=== PATIENT | male | born 1965 | race Caucasian/White ===

== ENCOUNTER → 2019-02-27 07:28 | Outpatient (CLI) | payer BC, SELFPAY ==
[2019-02-27 08:19] LABS: Add Manual Diff / Slide Review NO; Basophils Absolute Auto 100 /uL (0-100); Basophils Percent Auto 1.7 % (0-2); Eosinophils Absolute Auto 300 /uL (0-450); Hematocrit 43.6 % (41-53); Hemoglobin 15.2 g/dL (13.5-17.5); Lymphocytes Absolute Auto 1200 /uL (1100-4500); Mean Corpuscular HGB Conc 34.9 % (30-36); Mean Corpuscular Hemoglobin 29.3 PG (26-34); Monocytes Absolute Auto 400 /uL (0-900); Neutrophils Absolute Auto 2500 /uL (1500-7000); Neutrophils Percent Auto 56.3 % (50-75); Platelet Count 227 X10^3/uL (150-400); Red Blood Cell Count 5.19 X10^6/uL (4.5-5.9); Red Cell Distribution Width 13.9 % (11.6-14.8); White Blood Cell Count 4.5 X10^3/uL (4.5-11.0)
[2019-02-27 08:32] LABS: Alanine Aminotransferase 37 IU/L (<50); Albumin 4.4 g/dL (3.5-5.0); Albumin Globulin Ratio 1.7 (1.0-2.8); Alkaline Phosphatase 87 U/L (38-126); Aspartate Aminotransferase 35 IU/L (17-59); BUN Creatinine Ratio 18.9 (6-22); Bilirubin Total 1.1 mg/dL (0.2-1.3); Blood Urea Nitrogen 17 mg/dL (9-20); Calcium 9.6 mg/dL (8.4-10.2); Carbon Dioxide 28 mmol/L (22-32); Chloride 104 mmol/L (98-107); Cholesterol 223 mg/dL (140-199); Estimated Glomerular Filt Rate > 60.0 mL/min (>60); Globulin 2.6 g/dL (1.7-4.1); Glucose 101 mg/dL (70-100); HDL Cholesterol 29 mg/dL (40-60); HEMOLYSIS < 15 (0-50); LDL Cholesterol Calculated 155 mg/dL (<100); Potassium 4.2 mmol/L (3.4-5.1); Sodium 141 mmol/L (137-145); Triglycerides 195 mg/dL (35-150)
[2019-02-27 09:02] LABS: Prostate Specific Antigen Scrn 0.798 ng/mL (0.1-4.0)
[2019-02-27 09:03] LABS: Thyroid Stimulating Hormone 1.76 uIU/mL (0.47-4.68)
== END ==
PROVIDERS: PCP Family Medicine; Visit Provider Family Medicine
DX: E78.2 Mixed hyperlipidemia (principal)
CPT/HCPCS: 36415; 80053; 80061; 84443; 85025; G0103

== ENCOUNTER → 2020-01-12 15:56 | Outpatient (CLI) | payer OTHER, SELFPAY ==
--- NOTE | 2020-01-12 15:57 | DI.RAD.S_ITS ---
PROCEDURE: XR ANKLE LT MIN 3V INDICATIONS: swelling, injury TECHNIQUE: 3 views of the ankle were acquired. COMPARISON: None. FINDINGS: Bones: Fracture of the distal fibula/lateral malleolus, with nondisplaced appearance. Soft tissues: No tibiotalar joint effusion. Achilles tendon appears normal. IMPRESSION: Nondisplaced fracture of the distal fibula/lateral malleolus Dictated by: Diego Ozuna M.D. on 01/12/2020 at 16:15 Approved by: Diego Ozuna M.D. on 01/12/2020 at 16:24
--- NOTE | 2020-01-12 17:22 | DI.RAD.S_ITS ---
PROCEDURE: XR TIBIA FIBULA RT 2V INDICATIONS: ankle injury TECHNIQUE: 2 views of the tibia and fibula were acquired. COMPARISON: None. FINDINGS: Bones: No fractures or dislocations. No suspicious bony lesions. Soft tissues: No suspicious soft tissue calcifications or masses. IMPRESSION: No acute left lower leg fracture or dislocation. Dictated by: Akbar Ruiz M.D. on 01/12/2020 at 17:34 Approved by: Akbar Ruiz M.D. on 01/12/2020 at 17:39
== END ==
PROVIDERS: PCP Family Medicine; Referring Provider Family Medicine; Visit Provider Family Medicine
DX: S82.65XA Nondisplaced fracture of lateral malleolus of left fibula, initial encounter for closed fracture (principal); X58.XXXA Exposure to other specified factors, initial encounter
CPT/HCPCS: 73590; 73610

== ENCOUNTER → 2020-01-16 06:38 | Outpatient (CLI) | payer OTHER, SELFPAY ==
--- NOTE | 2020-01-16 06:39 | DI.MRI.S_ITS ---
PROCEDURE: MR ANKLE LT WO CON INDICATIONS: Fractured fibula distal TECHNIQUE: Noncontrast sagittal T1 spin echo and T2 fast spin echo with fat saturation, axial proton density fast spin echo and T2 fast spin echo with fat saturation, coronal T1 spin echo and T2 fast spin echo with fat saturation through the ankle/hindfoot. COMPARISON: [facility], [place], XR ANKLE LT MIN 3V, 01/12/2020, 15:46. FINDINGS: Image quality: Excellent. Bones and joints: There is soft tissue edema and swelling over medial aspect of distal lower leg extending to medial and posterior aspect of ankle joint. Mild edema involving lateral periphery of lateral malleolus is seen suggestive of bony contusion. No fracture or dislocation. Previous radiographic finding of linear lucency in distal fibular shaft likely represent nutrient vessel. Small amount of tibiotalar joint effusion is noted. No gross intra-articular loose body. No hindfoot coalitions. No osteochondral injuries of the talar dome. Medial structures: The posterior tibialis, flexor digitorum longus, and flexor hallucis longus tendons are intact. The posterior tibial neurovascular bundle appears normal within the tarsal tunnel, without extrinsic mass effect. The deep layer (anterior and posterior tibiotalar ligaments) and superficial layer (tibionavicular, tibiospring, and tibiocalcaneal ligaments) of the deltoid ligament appear normal. The spring ligament components (superomedial calcaneonavicular, medioplantar oblique calcaneonavicular, and inferoplantar longitudinal ligaments) are intact. Lateral structures: The anterior talofibular, calcaneofibular, and posterior talofibular ligaments appear intact. More superiorly, the anterior and posterior tibiofibular ligaments appear intact, as is the intermalleolar ligament. The tibiofibular syndesmosis is normal in width at 2 mm or less. The peroneus longus and brevis tendons are mildly thickened suggestive of low-grade tendinosis. Adjacent bony peroneal tubercle and retrotrochlear prominence are normal in size. The sinus tarsi demonstrates normal fatty signal, without edema, fibrosis, or cyst formation. Visualized sinus tarsi components (cervical ligament, interosseous talocalcaneal ligament, roots of the inferior extensor retinaculum) appear normal. The calcaneonavicular and calcaneocuboid components of the bifurcate ligament appear intact. The dorsal calcaneocuboid ligament appears intact. Anterior structures: The tibialis anterior, extensor hallucis longus, and extensor digitorum longus tendons appear intact. The dorsal talonavicular ligament appears intact. Posterior and plantar structures: Distal Achilles tendinosis and low-grade intrasubstance partial-thickness tear near its posterior calcaneal insertion is seen. No full-thickness rupture.. Medial and lateral bands of the plantar fascia are of normal thickness. No abductor digiti quinti muscle atrophy to suggest Moraes neuropathy. IMPRESSION: 1. Mild bony contusion involving lateral periphery of lateral malleolus. No evidence of acute fracture or dislocation is seen. Radiographic finding of linear lucency in distal fibular shaft likely represent a nutrient vessel. No other area of abnormal marrow signal. 2. Mild soft tissue edema and swelling along medial aspect of lower leg extending to medial and posterior aspect of ankle. 3. Suggestion of low-grade tendinosis involving peroneus tendons. Medial ankle tendons are intact. Distal Achilles tendinosis and low-grade partial-thickness tear at its posterior calcaneal insertion. No full-thickness Achilles tendon rupture. 4. Medial and lateral ankle ligaments are grossly intact. Dictated by: Akbar Ruiz M.D. on 01/16/2020 at 9:19 Approved by: Akbar Ruiz M.D. on 01/16/2020 at 9:26
== END ==
PROVIDERS: PCP Family Medicine; Referring Provider Family Medicine; Visit Provider Family Medicine
DX: S80.12XA Contusion of left lower leg, initial encounter (principal); S86.011A Strain of right Achilles tendon, initial encounter; R60.0 Localized edema; X58.XXXA Exposure to other specified factors, initial encounter
CPT/HCPCS: 73721

== ENCOUNTER → 2020-09-21 15:29 | Outpatient (CLI) | payer BC, SELFPAY ==
--- NOTE | 2020-09-21 15:30 | DI.US.S_ITS ---
PROCEDURE: US SOFT TISSUE HEAD AND NECK INDICATIONS: left neck nodule TECHNIQUE: Real-time scanning was performed of the neck region of interest, with image documentation. COMPARISON: None. FINDINGS: Scattered lymph nodes are present. There is no enlargement by pathologic size criteria. Fatty hilums are preserved. IMPRESSION: Normal subcentimeter lymph nodes. Dictated by: Regina Hudson M.D. on 09/21/2020 at 16:46 Approved by: Regina Hudson M.D. on 09/21/2020 at 16:47
== END ==
PROVIDERS: PCP Family Medicine; Referring Provider Family Medicine; Visit Provider Family Medicine
DX: R22.1 Localized swelling, mass and lump, neck (principal)
CPT/HCPCS: 76536

== ENCOUNTER → 2020-09-24 10:23 | Outpatient (CLI) | payer BC, SELFPAY ==
[2020-09-24 12:12] LABS: Hemoglobin A1C% w Est Avg Glu 4.9 % (4.0-6.0)
[2020-09-24 12:16] LABS: Alanine Aminotransferase 34 IU/L (<50); Albumin 4.3 g/dL (3.5-5.0); Albumin Globulin Ratio 1.5 (1.0-2.8); Alkaline Phosphatase 68 U/L (38-126); Aspartate Aminotransferase 36 IU/L (17-59); BUN Creatinine Ratio 20.2 (6-22); Bilirubin Total 1.2 mg/dL (0.2-1.3); Blood Urea Nitrogen 19 mg/dL (9-20); Calcium 9.4 mg/dL (8.4-10.2); Carbon Dioxide 26 mmol/L (22-32); Chloride 102 mmol/L (98-107); Cholesterol 231 mg/dL (140-199); Estimated Glomerular Filt Rate > 60.0 mL/min (>60); Globulin 2.9 g/dL (1.7-4.1); Glucose 95 mg/dL (70-100); HDL Cholesterol 39 mg/dL (40-60); HEMOLYSIS 32 (0-50); LDL Cholesterol Calculated 173 mg/dL (<100); Potassium 4.2 mmol/L (3.4-5.1); Sodium 136 mmol/L (137-145); Total Protein 7.2 g/dL (6.3-8.2); Triglycerides 97 mg/dL (35-150)
== END ==
PROVIDERS: PCP Family Medicine; Referring Provider Family Medicine; Visit Provider Family Medicine
DX: D23.9 Other benign neoplasm of skin, unspecified (principal); E78.5 Hyperlipidemia, unspecified; Z00.01 Encounter for general adult medical examination with abnormal findings
CPT/HCPCS: 36415; 80053; 80061; 83036; 84443